=== PATIENT | female | born 1990 | race Two or more races ===

== ENCOUNTER 2018-12-11 13:51 | Outpatient (CLI) | payer OTHER | END 2018-12-11 14:57 | disposition home or self-care (01) | LOC: SONOGRAMA 13:51 | DX: Z34.00 Encounter for supervision of normal first pregnancy, unspecified trimester (principal) ==

== ENCOUNTER 2019-05-01 00:34 | Inpatient (IN) | payer OTHER ==
[~2019-05-01] VITALS: Ht 165.1 cm; Wt 73.5 kg
[2019-05-01] MEDS ORDERED: PRENATAL TABLE1 EAC1 PO (00:52)
== END 2019-05-03 17:31 | disposition home or self-care (01) | DRG 807 ==
LOC: LDR 00:34 → OB/GYN 00:34
PROVIDERS: ADMIT Specialist
PROC: 10E0XZZ Delivery of Products of Conception, External Approach (ICD-10-PCS; principal; 2019-05-01)
PROC: 0UQGXZZ Repair Vagina, External Approach (ICD-10-PCS; 2019-05-01)
PROC: 10907ZC Drainage of Amniotic Fluid, Therapeutic from Products of Conception, Via Natural or Artificial Opening (ICD-10-PCS; 2019-05-01)
PROC: 4A1HXCZ Monitoring of Products of Conception, Cardiac Rate, External Approach (ICD-10-PCS; 2019-05-01)
DX: O70.0 First degree perineal laceration during delivery (principal); Z37.0 Single live birth; Z3A.37 37 weeks gestation of pregnancy